=== PATIENT | female | born 1995 | race Caucasian/White ===

== ENCOUNTER 2020-07-23 21:17 | Emergency (ER) | payer OTHER ==
[~2020-07-23] VITALS: Ht 170.2 cm; Wt 63.5 kg
[~2020-07-23 21:17] MED LIST: PRENATABS FA T1 EACH MT
[2020-07-23] MEDS ORDERED: VOLNEA 0.15-0.1 EACH PO (21:29)
[2020-07-23] MEDS ORDERED: SERTRALINE HCL100 MG PO (21:29)
== END 2020-07-23 22:21 | disposition home or self-care (01) ==
LOC: ED 21:17
DX: S16.1XXA Strain of muscle, fascia and tendon at neck level, initial encounter (principal); V43.52XA Car driver injured in collision with other type car in traffic accident, initial encounter; Z88.5 Allergy status to narcotic agent; Z79.899 Other long term (current) drug therapy
CPT/HCPCS: 72040; 99284-25

== ENCOUNTER 2022-10-12 15:50 | Emergency (ER) | payer OTHER ==
[~2022-10-12] VITALS: Ht 170.2 cm; Wt 52.6 kg
[~2022-10-12 15:50] MED LIST changes: +SERTRALINE HCL100 MG PO; +VOLNEA 0.15-0.1 EACH PO
[2022-10-12] MEDS ORDERED: ONDANSETRON ODT4 MG PO (19:55)
[2022-10-12 20:16] VITALS: BP 115/76
== END 2022-10-12 20:21 | disposition home or self-care (01) ==
LOC: ED 15:50
DX: R19.7 Diarrhea, unspecified (principal); R11.2 Nausea with vomiting, unspecified; Z88.5 Allergy status to narcotic agent; Z79.899 Other long term (current) drug therapy
CPT/HCPCS: 36415; 80053; 81003; 83735; 84703; 85025; 96374; 96375; 99284-25; J0461; J0780; J1200; J2405; J7030; J7040